=== PATIENT | male | born 1990 | race African-American/Black ===

== ENCOUNTER 2017-12-01 20:07 | Emergency (ER) | payer MEDICAID ==
[~2017-12-01] VITALS: Ht 190.5 cm; Wt 97.7 kg
[2017-12-01] MEDS ORDERED: TETANUS AND DIPHTHERIA TOX/PF 0.5ML SYR (ADULT) IM ONE (22:45)
[2017-12-01] MEDS ORDERED: TETANUS, DIPHTHERIA, PERTUSSIS VAC/PF 0.5ML (>7YR OLD) IM ONE (23:00)
[2017-12-01 23:59] VITALS: BP 123/76
== END 2017-12-01 23:59 | disposition home or self-care (01) ==
LOC: ER 20:07 → EDSEX 20:07 → ER 23:59
DX: S01.412A Laceration without foreign body of left cheek and temporomandibular area, initial encounter (principal); Y09 Assault by unspecified means; Z23 Encounter for immunization
CPT/HCPCS: 12014; 90471; 90715; 99283; X7700; Z7610; 90714